=== PATIENT | female | born 1970 | race Caucasian/White ===

== ENCOUNTER 2022-05-05 09:08 | Emergency (ER) | payer OTHER, MEDICAID ==
[~2022-05-05] VITALS: Ht 147.3 cm; Wt 57.2 kg
[2022-05-05 09:24] VITALS: BP 131/81
--- NOTE | 2022-05-05 09:45 | NUR ---
PT PROVIDED URINE
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
--- NOTE | 2022-05-05 09:56 | NUR ---
Note anders in EDM - 05/05/22 at 0959 by [email or web address] Patient discharged with v/s stable. Written and verbal after care instructions given and explained. Patient alert, oriented and verbalized understanding of instructions. Ambulatory with steady gait. All questions addressed prior to discharge. ID band removed. Patient advised to follow up with PMD. Rx of IBUPROFEN & CEPACOL given. Patient educated on indication of medication including possible reaction and side effects. Opportunity to ask questions provided and answered.
[2022-05-05] MEDS ORDERED: KETOROLAC 30 MG/ML VIAL IM ONE (10:00)
--- NOTE | 2022-05-05 10:13 | NUR ---
foam c collar placed on pt. + cms
--- NOTE | 2022-05-05 10:21 | NUR ---
XRAY AT BEDSIDE
--- NOTE | 2022-05-05 10:58 | NUR ---
PT BACK FROM XRAY
--- NOTE | 2022-05-05 12:16 | NUR ---
PT RESTING IN BED, VSS. PAIN 3/
[2022-05-05] MEDS ORDERED: IBUP-2213 PO (12:24)
[2022-05-05] MEDS ORDERED: METH-1681 PO (12:24)
[2022-05-05] MEDS ORDERED: ACET-10509 PO (12:24)
[2022-05-05] MEDS ORDERED: ACETAMINOPHEN EXTRA STRENGTH 500 MG TAB PO ONE (12:25)
--- NOTE | 2022-05-05 12:50 | NUR ---
Patient discharged with v/s stable. Written and verbal after care instructions given and explained. Patient alert, oriented and verbalized understanding of instructions. Ambulatory with steady gait. All questions addressed prior to discharge. ID band removed. Patient advised to follow up with PMD. Rx of TYLENOL,ROBAXIN,IBU given. Patient educated on indication of medication including possible reaction and side effects. Opportunity to ask questions provided and answered.
[2022-05-05 12:56] VITALS: BP 122/75
== END 2022-05-05 12:50 | disposition home or self-care (01) ==
LOC: MED 09:08
DX: S13.4XXA Sprain of ligaments of cervical spine, initial encounter (principal); S16.1XXA Strain of muscle, fascia and tendon at neck level, initial encounter; M79.10 Myalgia, unspecified site; R42 Dizziness and giddiness; R51.9 Headache, unspecified; Z79.899 Other long term (current) drug therapy; V89.2XXA Person injured in unspecified motor-vehicle accident, traffic, initial encounter; Y93.89 Activity, other specified; Y92.89 Other specified places as the place of occurrence of the external cause; Y99.8 Other external cause status
CPT/HCPCS: 70450; 71045; 72125; 81002; 81025; 96372; 99284; J1885

== ENCOUNTER 2022-05-09 09:52 | Emergency (ER) | payer MEDICAID ==
[~2022-05-09] VITALS: Ht 149.9 cm; Wt 56.2 kg
[~2022-05-09 09:52] MED LIST: ACET-10509 PO; IBUP-2213 PO; METH-1681 PO
[2022-05-09 09:56] VITALS: BP 140/91
--- NOTE | 2022-05-09 09:59 | NUR ---
AMBULATED TO BED 10
--- NOTE | 2022-05-09 10:49 | NUR ---
51Y/0 FEMALE BIB C/O GENERALIZED HEADACH THROBBING RADIATING DOWN RIGHT SIDE OF BODY SINCE 5DAYS WITH INCREASED FREQUENCY YESTERDAY AND DIZZINESS, REPORTS TAKING UNSPECIFIED PAIN MEDS WITH NO RELIEF. DENIES LOC, SPEAKING IN FULL SENTENCES PMH: DENIES NKA
--- NOTE | 2022-05-09 11:41 | NUR ---
DR HARDWICK AT BEDSIDE
[2022-05-09] MEDS ORDERED: KETOROLAC 30 MG/ML VIAL IM ONE (11:50)
[2022-05-09] MEDS ORDERED: ACET-8386 PO (12:44)
[2022-05-09 12:53] VITALS: BP 129/80
--- NOTE | 2022-05-09 12:54 | NUR ---
Patient discharged with v/s stable. Written and verbal after care instructions given and explained. Patient alert, oriented and verbalized understanding of instructions. Ambulatory with steady gait. All questions addressed prior to discharge. ID band removed. Patient advised to follow up with PMD. Rx of NORCO 5-325 given. Patient educated on indication of medication including possible reaction and side effects. Opportunity to ask questions provided and answered.
== END 2022-05-09 12:54 | disposition home or self-care (01) ==
LOC: MED 09:52
DX: S16.1XXA Strain of muscle, fascia and tendon at neck level, initial encounter (principal); R51.9 Headache, unspecified; Z79.899 Other long term (current) drug therapy; Z98.890 Other specified postprocedural states; V89.2XXA Person injured in unspecified motor-vehicle accident, traffic, initial encounter; Y93.89 Activity, other specified; Y92.89 Other specified places as the place of occurrence of the external cause; Y99.8 Other external cause status
CPT/HCPCS: 96372; 99283; J1885

== ENCOUNTER 2022-05-15 13:20 | Emergency (ER) | payer MEDICAID, OTHER ==
[~2022-05-15] VITALS: Ht 144.8 cm; Wt 56.7 kg
[~2022-05-15 13:20] MED LIST changes: +ACET-8386 PO
[2022-05-15 13:23] VITALS: BP 126/71
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
--- NOTE | 2022-05-15 14:10 | NUR ---
PT AMBULATED TO BED 07.
--- NOTE | 2022-05-15 14:16 | NUR ---
ERMD AT BEDSIDE.
--- NOTE | 2022-05-15 14:18 | NUR ---
DR LANZA AT BEDSIDE EVALUATING PT
[2022-05-15] MEDS ORDERED: KETOROLAC 60 MG/2 ML VIAL IM ONE (14:25)
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
--- NOTE | 2022-05-15 14:35 | NUR ---
PT TAKEN TO CT VIA WHEELCHAIR
--- NOTE | 2022-05-15 14:46 | NUR ---
PT BROUGHT BACK FROM CT VIA WHEELCHAIR
[2022-05-15] MEDS ORDERED: IBUP-2213 PO (16:04)
[2022-05-15 16:30] VITALS: BP 105/60
--- NOTE | 2022-05-15 16:30 | NUR ---
Patient discharged with v/s stable. Written and verbal after care instructions FOR GENERAL HEADACHE W/O CAUSE given and explained. Patient alert, oriented and verbalized understanding of instructions. Ambulatory with steady gait. All questions addressed prior to discharge. ID band removed. Patient advised to follow up with PMD. Rx of IBUPROFEN given. . Opportunity to ask questions provided and answered.
== END 2022-05-15 16:30 | disposition home or self-care (01) ==
LOC: MED 13:20
DX: R51.9 Headache, unspecified (principal); M25.521 Pain in right elbow; M25.522 Pain in left elbow; R11.2 Nausea with vomiting, unspecified; M54.9 Dorsalgia, unspecified; Z79.899 Other long term (current) drug therapy; Z79.891 Long term (current) use of opiate analgesic; Z79.1 Long term (current) use of non-steroidal anti-inflammatories (NSAID)
CPT/HCPCS: 70450; 81002; 81025; 96372; 99285; J1885

== ENCOUNTER 2022-08-17 15:32 | Emergency (ER) | payer MEDICAID ==
[~2022-08-17] VITALS: Ht 157.5 cm; Wt 65.8 kg
[~2022-08-17 15:32] MED LIST changes: -ACET-8386 PO; +ACET-8905 PO
[2022-08-17 15:43] VITALS: BP 121/72
[2022-08-17] MEDS ORDERED: KETOROLAC 30 MG/ML VIAL IM ONE (16:05)
[2022-08-17] MEDS ORDERED: CAPS1ADH5 TP (17:59)
[2022-08-17] MEDS ORDERED: NAPR-1704 PO (17:59)
[2022-08-17] MEDS ORDERED: KETOROLAC 30 MG/ML VIAL ONE (18:09)
--- NOTE | 2022-08-17 18:14 | NUR ---
Patient discharged with v/s stable. Written and verbal after care instructions given and explained. Patient alert, oriented and verbalized understanding of instructions. Ambulatory with steady gait. All questions addressed prior to discharge. ID band removed. Patient advised to follow up with PMD. Rx of NAPROXEN, SALONPAS GEL-PATCH HOT given. Patient educated on indication of medication including possible reaction and side effects. Opportunity to ask questions provided and answered.
== END 2022-08-17 18:14 | disposition home or self-care (01) ==
LOC: MED 15:32
DX: S39.012A Strain of muscle, fascia and tendon of lower back, initial encounter (principal); Z79.899 Other long term (current) drug therapy; X58.XXXA Exposure to other specified factors, initial encounter; Y93.89 Activity, other specified; Y92.89 Other specified places as the place of occurrence of the external cause; Y99.8 Other external cause status
CPT/HCPCS: 72100; 81025; 96372; 99283; J1885

== ENCOUNTER 2023-03-02 02:30 | Emergency (ER) | payer OTHER, MEDICAID ==
[~2023-03-02] VITALS: Ht 152.4 cm; Wt 54.4 kg
[~2023-03-02 02:30] MED LIST changes: +CAPS1ADH5 TP; +NAPR-1704 PO
[2023-03-02 02:45] VITALS: BP 134/83; PULSE 65; RESP 16; TEMP 97.3; O2SAT 98
--- NOTE | 2023-03-02 02:48 | NUR ---
TO LOBBY A/W BED AMBULATORY
--- NOTE | 2023-03-02 04:12 | NUR ---
SEEN AND EXAMINED BY SONIDO
[2023-03-02] MEDS ORDERED: LIDOCAINE 5% 1 EA PATCH TP ONE (04:15)
[2023-03-02] MEDS ORDERED: ONDANSETRON 4 MG ODT PO ONE (04:15)
[2023-03-02] MEDS ORDERED: KETOROLAC 30 MG/ML VIAL IM ONE (04:15)
--- NOTE | 2023-03-02 04:38 | NUR ---
Patient resting in bed, A/Ox4, chest rise and fall symmetrical, no c/o pain or s/s of distress, on monitor,
[2023-03-02] MEDS ORDERED: IBUP-2218 PO (05:22)
[2023-03-02] MEDS ORDERED: ACET-10509 PO (05:22)
--- NOTE | 2023-03-02 06:10 | NUR ---
Patient resting in bed, A/Ox4, chest rise and fall symmetrical, no c/o pain or s/s of distress, on monitor,
[2023-03-02 06:20] VITALS: BP 127/85; PULSE 78; RESP 18; TEMP 98.3; O2SAT 99
== END 2023-03-02 06:20 | disposition home or self-care (01) ==
LOC: MED 02:30
DX: G44.86 Cervicogenic headache (principal); Z79.899 Other long term (current) drug therapy; V89.2XXA Person injured in unspecified motor-vehicle accident, traffic, initial encounter; Y93.89 Activity, other specified; Y92.89 Other specified places as the place of occurrence of the external cause; Y99.8 Other external cause status
CPT/HCPCS: 96372; 99283; J1885; Q0162

== ENCOUNTER 2023-06-03 08:02 | Emergency (ER) | payer MEDICAID, OTHER ==
[~2023-06-03] VITALS: Ht 154.9 cm; Wt 53.5 kg
[~2023-06-03 08:02] MED LIST changes: +IBUP-2218 PO
[2023-06-03 08:07] VITALS: BP 128/67; PULSE 63; RESP 15; TEMP 97.8; O2SAT 98
[2023-06-03] MEDS ORDERED: CYCLOBENZAPRINE 10 MG TAB PO ONE (09:15)
[2023-06-03] MEDS ORDERED: KETOROLAC 30 MG/ML VIAL IM ONE (09:15)
[2023-06-03] MEDS ORDERED: LIDOCAINE 5% 1 EA PATCH TP ONE (09:15)
[2023-06-03] MEDS ORDERED: CYCL-711 PO (11:34)
[2023-06-03] MEDS ORDERED: ACET-10509 PO (11:34)
[2023-06-03] MEDS ORDERED: LIDO15CR2 TP (11:34)
[2023-06-03] MEDS ORDERED: IBUP-2213 PO (11:34)
== END 2023-06-03 11:52 | disposition home or self-care (01) ==
LOC: MED 08:02
DX: S39.012A Strain of muscle, fascia and tendon of lower back, initial encounter (principal); G89.29 Other chronic pain; M54.2 Cervicalgia; Z79.899 Other long term (current) drug therapy; X58.XXXA Exposure to other specified factors, initial encounter; Y93.89 Activity, other specified; Y92.89 Other specified places as the place of occurrence of the external cause; Y99.8 Other external cause status
CPT/HCPCS: 72050; 72072; 72110; 96372; 99284; J1885

== ENCOUNTER 2023-07-30 01:20 | Emergency (ER) | payer MEDICAID ==
[~2023-07-30] VITALS: Ht 149.9 cm; Wt 52.6 kg
[~2023-07-30 01:20] MED LIST changes: +CYCL-711 PO; +LIDO15CR2 TP
[2023-07-30 02:07] VITALS: BP 120/74; PULSE 63; RESP 16; TEMP 99.2; O2SAT 98
[2023-07-30] MEDS ORDERED: ACETAMINOPHEN EXTRA STRENGTH 500 MG TAB PO ONE (02:50)
[2023-07-30] MEDS ORDERED: IBUPROFEN 400 MG TAB PO ONE (02:50)
[2023-07-30] MEDS ORDERED: methocarbamoL 500 MG TAB PO SCH (02:50)
[2023-07-30] MEDS ORDERED: MORPHINE SULFATE 4 MG/ML SYR IM ONE (03:35)
[2023-07-30 04:16] VITALS: BP 120/74; PULSE 63; RESP 16; TEMP 99.2; O2SAT 98
== END 2023-07-30 04:16 | disposition home or self-care (01) ==
LOC: MED 01:20
DX: M54.50 Low back pain, unspecified (principal); R07.9 Chest pain, unspecified; M54.2 Cervicalgia; Z79.899 Other long term (current) drug therapy
CPT/HCPCS: 96372; 99284; J2270

== ENCOUNTER 2024-04-27 03:14 | Emergency (ER) | payer OTHER ==
[~2024-04-27] VITALS: Ht 157.5 cm; Wt 68.0 kg
[~2024-04-27 03:14] MED LIST changes: -ACET-10509 PO; +ACET500T99 PO; +BEN10 PO; +CARB15DR61 OT; -IBUP-2218 PO; +NAPR-337 PO; +PANT40EC PO
[2024-04-27 03:17] VITALS: BP 140/76; PULSE 78; RESP 24; TEMP 97.2; O2SAT 100
[2024-04-27 04:00] LABS: BASOPHILS # (AUTO) 0.1 K/uL (0.00-0.22); BASOPHILS % (AUTO) 1.3 % (0.0-2.0); EOSINOPHILS # (AUTO) 0.3 K/uL (0-0.4); HEMATOCRIT 38.7 % (36-48); HEMOGLOBIN 13.3 g/dL (12.0-16.0); LYMPHOCYTES % (AUTO) 45.8 % (20.5-51.1); MEAN CORPUSCULAR HEMOGLOBIN 30 pg (27-31); MEAN CORPUSCULAR HGB CONC 35 g/dL (33-37); MEAN CORPUSCULAR VOLUME 87.4 fL (80-94); MONOCYTES # (AUTO) 0.6 K/uL (0.8-1.0); MONOCYTES % (AUTO) 6.5 % (1.7-9.3); NEUTROPHILS # (AUTO) 3.8 K/uL (1.8-7.7); NEUTROPHILS % (AUTO) 43.4 % (42.2-75.2); PLATELET COUNT (AUTO) 276 K/uL (140-450); RED BLOOD CELL COUNT(AUTO) 4.42 MIL/uL (4.20-5.40); RED CELL DISTRIBUTION WIDTH 12.6 % (11.6-13.7); WHITE BLOOD COUNT (AUTO) 8.8 K/uL (4.8-10.8)
[2024-04-27 04:13] LABS: ALBUMIN 3.7 g/dL (3.4-5.0); ANION GAP 16.3 (8-16); CALCIUM 8.8 mg/dL (8.5-10.1); CARBON DIOXIDE 22.2 mmol/L (21-32); CREATININE 0.8 mg/dL (0.6-1.3); POTASSIUM 3.5 mmol/L (3.5-5.1); TOTAL BILIRUBIN 0.2 mg/dL (0.0-1.0); TOTAL PROTEIN, SERUM 7.2 g/dL (6.4-8.2)
[2024-04-27 04:21] VITALS: BP 112/67; PULSE 60; RESP 11; O2SAT 97
[2024-04-27] MEDS ORDERED: DICYCLOMINE HCL LIQUID 10 MG/5 ML UDC ONE (06:30)
[2024-04-27] MEDS ORDERED: ALUMINUM HYD/MAG/SIMETHICONE 30 ML UDC ONE (06:30)
[2024-04-27] MEDS: DICYCLOMINE HCL LIQUID 20 MG, ALUMINUM HYD/MAG/SIMETHICONE 30 ML, LIDOCAINE VISCOUS 2% ... PO ONE (06:34)
[2024-04-27] MEDS ORDERED: IBUP-2213 PO (06:49)
== END 2024-04-27 07:02 | disposition home or self-care (01) ==
LOC: MED 03:14
DX: R07.89 Other chest pain (principal); Z79.1 Long term (current) use of non-steroidal anti-inflammatories (NSAID); Z79.899 Other long term (current) drug therapy
CPT/HCPCS: 36415; 71045; 80053; 83880; 84484; 85025; 85379; 93005; 99285; Q0092